=== PATIENT | female | born 1930 | race Caucasian/White ===

== ENCOUNTER 2017-11-29 12:45 | Outpatient (CLI) | payer MEDICARE, BC ==
[~2017-11-29 12:45] MED LIST: ACET-2605 PO; ALEN70TA45 PO; DIPH25TA62 PO; LEVO50TA PO; MULT-594 PO
== END 2017-11-29 23:59 | disposition home health service (06) ==
LOC: WOU 12:45
PROVIDERS: ATTEND Surgery
DX: L59.8 Other specified disorders of the skin and subcutaneous tissue related to radiation (principal); Z85.828 Personal history of other malignant neoplasm of skin; S81.802A Unspecified open wound, left lower leg, initial encounter; Y84.2 Radiological procedure and radiotherapy as the cause of abnormal reaction of the patient, or of later complication, without mention of misadventure at the time of the procedure; Y78.1 Therapeutic (nonsurgical) and rehabilitative radiological devices associated with adverse incidents; Y92.89 Other specified places as the place of occurrence of the external cause; Z86.73 Personal history of transient ischemic attack (TIA), and cerebral infarction without residual deficits
CPT/HCPCS: 11043; A6402

== ENCOUNTER 2017-12-01 11:00 | Outpatient (CLI) | payer MEDICARE, BC | END 2017-12-01 23:59 | disposition home health service (06) | LOC: WOU 11:00 | PROVIDERS: ATTEND Specialist | DX: Z01.810 Encounter for preprocedural cardiovascular examination (principal); L59.8 Other specified disorders of the skin and subcutaneous tissue related to radiation; T81.89XD Other complications of procedures, not elsewhere classified, subsequent encounter; C44.729 Squamous cell carcinoma of skin of left lower limb, including hip; I73.9 Peripheral vascular disease, unspecified; F41.9 Anxiety disorder, unspecified; Z86.73 Personal history of transient ischemic attack (TIA), and cerebral infarction without residual deficits; J43.9 Emphysema, unspecified; I51.7 Cardiomegaly | CPT/HCPCS: 71046; A6210; A6402; G0463 ==

== ENCOUNTER 2017-12-16 13:38 | Outpatient (CLI) | payer MEDICARE, BC | END 2017-12-16 23:59 | disposition home health service (06) | LOC: WOU 13:38 | PROVIDERS: ATTEND Surgery | DX: T81.89XA Other complications of procedures, not elsewhere classified, initial encounter (principal); L59.8 Other specified disorders of the skin and subcutaneous tissue related to radiation; C44.729 Squamous cell carcinoma of skin of left lower limb, including hip; F06.4 Anxiety disorder due to known physiological condition; I73.9 Peripheral vascular disease, unspecified; Z74.09 Other reduced mobility | CPT/HCPCS: 11043; A6402; Z7610 ==

== ENCOUNTER 2017-12-22 10:56 | Outpatient (CLI) | payer MEDICARE, BC | END 2017-12-22 23:59 | disposition home or self-care (01) | LOC: WOU 10:56 | PROVIDERS: ATTEND Surgery | DX: S81.802D Unspecified open wound, left lower leg, subsequent encounter (principal); X58.XXXD Exposure to other specified factors, subsequent encounter | CPT/HCPCS: 93925; 93970; Z7610 ==

== ENCOUNTER 2017-12-23 13:27 | Outpatient (CLI) | payer MEDICARE, BC | END 2017-12-23 23:59 | disposition home health service (06) | LOC: WOU 13:27 | PROVIDERS: ATTEND Surgery | DX: L59.8 Other specified disorders of the skin and subcutaneous tissue related to radiation (principal); C44.729 Squamous cell carcinoma of skin of left lower limb, including hip; F06.4 Anxiety disorder due to known physiological condition; I73.9 Peripheral vascular disease, unspecified | CPT/HCPCS: 11043; A6402 ×2; A6452; Z7610; J2001 ==

== ENCOUNTER 2017-12-23 16:00 | Outpatient (CLI) | payer MEDICARE, BC | END 2017-12-23 23:59 | disposition home or self-care (01) | LOC: WOU 16:00 | PROVIDERS: ATTEND Surgery | PROC: 0Y3J3ZZ Control Bleeding in Left Lower Leg, Percutaneous Approach (ICD-10-PCS; principal; 2017-12-23) | DX: L76.22 Postprocedural hemorrhage of skin and subcutaneous tissue following other procedure (principal); L59.8 Other specified disorders of the skin and subcutaneous tissue related to radiation; I73.9 Peripheral vascular disease, unspecified | CPT/HCPCS: 11043; J2001 ==

== ENCOUNTER 2017-12-27 12:37 | Outpatient (CLI) | payer MEDICARE, BC | END 2017-12-27 23:59 | disposition home health service (06) | LOC: WOU 12:37 | PROVIDERS: ATTEND Surgery | DX: L59.8 Other specified disorders of the skin and subcutaneous tissue related to radiation (principal); T81.89XA Other complications of procedures, not elsewhere classified, initial encounter; C44.729 Squamous cell carcinoma of skin of left lower limb, including hip; F06.4 Anxiety disorder due to known physiological condition; Y92.89 Other specified places as the place of occurrence of the external cause; X58.XXXA Exposure to other specified factors, initial encounter | CPT/HCPCS: 11043; A6402; Z7610 ==